=== PATIENT | female | born 1980 | race Asian ===

== ENCOUNTER 2017-05-28 11:55 | Emergency (ER) | payer BC | END 2017-05-28 12:03 | disposition home or self-care (01) | LOC: E/R 12:03 | DX: R50.9 Fever, unspecified (principal) | CPT/HCPCS: 99284 ==

== ENCOUNTER 2017-11-01 22:43 | Emergency (ER) | payer BC | END 2017-11-02 02:01 | disposition home or self-care (01) | LOC: FTE 22:43 | DX: K64.4 Residual hemorrhoidal skin tags (principal); R40.2412 Glasgow coma scale score 13-15, at arrival to emergency department | CPT/HCPCS: 99284 ==

== ENCOUNTER 2019-02-11 18:53 | Emergency (ER) | payer BC | END 2019-02-11 19:47 | disposition home or self-care (01) | LOC: E/R 19:47 | DX: J02.9 Acute pharyngitis, unspecified (principal); K21.9 Gastro-esophageal reflux disease without esophagitis | CPT/HCPCS: 93005; 99283-25 ==